=== PATIENT | male | born 1955 | race Caucasian/White ===

== ENCOUNTER 2017-05-01 10:28 | Day surgery (SDC) | payer MEDICARE ==
[~2017-05-01] VITALS: Ht 177.8 cm; Wt 131.6 kg
[~2017-05-01 10:28] MED LIST: ACETAMINOPHEN500 M4 PO; ADULT ASPIRIN81 MG PO; AFLURIA IM; BENADRYL25 M3 PO; CALCIUM500 M3 PO; CETIRIZINE HCL10 M1 PO; CLINDAMYCIN HC300 M2 PO; CONSTULOSE10 G/15 ML PO; COREG6.25 M1 PO; DOCUSATE SODIU100 MG PO; EPOGEN2000 U/ML IV; FERRLECIT62.5 MG/1 IV; FOSRENOL1000 M1 PO; HEPARIN5000 UNIT1 IV; LIPITOR40 M1 PO; MIDODRINE HCL5 M1 PO; NEPHROCAPS CAPSU1 MG PO; NORCO 5-325 TA1 EACH PO; NORVASC5 M1 PO; NORVASC5 MG PO; OMEPRAZOLE20 M4 PO; PHOSLO667 M PO; PHOSLO667 M1 PO; PRINIVIL10 M1 PO; PROVENTIL HFA6.7 G1 INH; RENVELA800 M1 PO; RENVELA800 MG PO; ROBITUSSIN LON118 M1 PO; ROCALTROL0.25 MC1 PO; ROCALTROL0.5 MC2 PO; SENSIPAR30 MG PO; SENSIPAR90 MG PO; SERTRALINE HCL25 M3 PO; SODIUM CHLORID250 M1 IV; SYMBICORT 80-41 PUFF INH; TOPROL XL50 MG PO; TRAMADOL HCL PO; TRAMADOL HCL50 MG PO; TUMS200 MG PO; TYLENOL500 MG PO; VITAMIN D250000 UNI1 PO; VITAMIN D50000 UNIT PO; ZOCOR80 MG PO; ZOLOFT50 M1 PO; ZYRTEC1010 PO
== END 2017-05-01 20:20 ==
LOC: SHSB 10:28 → RADSP 10:28 → SHSB 10:29 → RADSP 13:00
PROC: B50WYZZ Plain Radiography of Dialysis Shunt/Fistula using Other Contrast (ICD-10-PCS; principal; 2017-05-01)
PROC: 057Y3ZZ Dilation of Upper Vein, Percutaneous Approach (ICD-10-PCS; 2017-05-01)
DX: T82.858A Stenosis of other vascular prosthetic devices, implants and grafts, initial encounter (principal)
CPT/HCPCS: C1725; C1769; C1887; G0257; J1644; J2250; J2405; J3010; Q9967